=== PATIENT | female | born 1995 | race Caucasian/White ===

== ENCOUNTER → 2019-09-18 | Outpatient (CLI) | payer OTHER | LOC: LAB 09-17 12:21 | DX: Z20.828 Contact with and (suspected) exposure to other viral communicable diseases (principal) ==

== ENCOUNTER → 2020-04-26 | Outpatient (REF) | LOC: LAB 22:41 | DX: J02.9 Acute pharyngitis, unspecified (principal); Z20.822 Contact with and (suspected) exposure to COVID-19 ==

== ENCOUNTER → 2020-11-01 | Outpatient (REF) | LOC: LAB 19:21 | DX: Z20.822 Contact with and (suspected) exposure to COVID-19 (principal) ==

== ENCOUNTER → 2022-07-01 | Outpatient (CLI) | payer OTHER | LOC: LAB 11:21 | DX: K51.919 Ulcerative colitis, unspecified with unspecified complications (principal); R19.7 Diarrhea, unspecified ==